=== PATIENT | male | born 1965 | race Caucasian/White ===

== ENCOUNTER 2019-05-26 07:11 | Day surgery (SDC) | payer BC, OTHER ==
[2019-05-23 17:51] VITALS: BMI 30.9
[2019-05-26 07:32] VITALS: TEMP 98.2
[2019-05-26] MEDS ORDERED: LIDOCAINE HCL/PF 2% SDV 5ML VIAL ONE (07:41)
[2019-05-26] MEDS ORDERED: PROPOFOL 20 ML ONE ×2 (07:41)
[2019-05-26 09:44] VITALS: BP 116/74; PULSE 62
--- NOTE | 2019-05-30 15:20 | PATH ---
Surgical Pathology Report Patient Name: SOPHY PLASCENCIA [facility]. Rec. #: [id number] /Age/Gender: 1965 (Age: 53) / M Account: [id number] Location: [facility] Taken: 05/26/2019 Received: 05/26/2019 Reported: 05/30/2019 Physicians: Kelvin Ravi M.D. Specimen(s) Received A: SECOND PORTION DUODENUM B: ANTRUM Clinical History Gastritis Postoperative diagnosis: Gastritis Final Diagnosis A. SECOND PORTION OF DUODENUM, BIOPSY: DUODENAL MUCOSA WITH NO SIGNIFICANT PATHOLOGIC CHANGE. NO HISTOLOGIC EVIDENCE OF INTRAEPITHELIAL LYMPHOCYTOSIS. B. ANTRUM, BIOPSY: GASTRIC MUCOSA WITH CHRONIC GASTRITIS. REACTIVE GASTROPATHY PRESENT. IMMUNOSTAIN FOR H. PYLORI IS NEGATIVE. NEGATIVE FOR INTESTINAL METAPLASIA. Electronically Signed Moe Avery M.D. Gross Description A. Received in formalin, labeled "biopsy second portion of duodenum" are 2 reid, irregular portions of soft tissue measuring 0.3 and 0.5 cm. in greatest dimension. The specimens are submitted in toto in one cassette. B. Received in formalin, labeled "biopsy gastric antrum" are 2 reid, irregular portions of soft tissue measuring 0.3 and 0.4 cm. in greatest dimension. The specimens are submitted in toto in one cassette. [facility]
== END 2019-05-26 09:45 | disposition home or self-care (01) ==
LOC: FASU-ENDO 07:11
PROVIDERS: ATTEND Internal Medicine Gastroenterology
PROC: 0DB68ZX Excision of Stomach, Via Natural or Artificial Opening Endoscopic, Diagnostic (ICD-10-PCS; 2019-05-26)
PROC: 0DB98ZX Excision of Duodenum, Via Natural or Artificial Opening Endoscopic, Diagnostic (ICD-10-PCS; principal; 2019-05-26 08:25)
DX: K29.50 Unspecified chronic gastritis without bleeding (principal); K31.9 Disease of stomach and duodenum, unspecified; R10.13 Epigastric pain
CPT/HCPCS: 88305-TC; 88342-TC